=== PATIENT | male | born 1965 | race Caucasian/White ===

== ENCOUNTER 2022-07-19 23:32 | Emergency (ER) | payer BC ==
[2022-07-19] MEDS ORDERED: Pantoprazole 40 MG Vial IVPUSH SCH (23:45)
[2022-07-19] MEDS ORDERED: Pantoprazole 40 MG in Sodium Chloride 0.9% 100 ML IV SCH (23:45)
[2022-07-19] MEDS ORDERED: Sodium Chloride 0.9% 1,000 ML IV STA (23:47)
[2022-07-19] MEDS ORDERED: Pantoprazole 40 MG Vial IVPUSH ONE (23:51)
[2022-07-19 23:58] LABS: APPEARANCE,URINE CLEAR (CLEAR); BILIRUBIN,URINE NEGATIVE (NEGATIVE); COLOR,URINE YELLOW (YELLOW); GLUCOSE,URINE NEGATIVE (NEGATIVE); KETONES,URINE TRACE mg/dL (NEGATIVE); NITRITE,URINE NEGATIVE (NEGATIVE); OCCULT BLOOD,URINE TRACE-INTACT (NEGATIVE); PROTEIN,URINE NEGATIVE (NEGATIVE); UROBILINOGEN,URINE 0.2 EU/dL (0.2-1.0)
[2022-07-20 00:02] LABS: BASOPHILS ABSOLUTE AUTO 0.05 10^3/uL (0.00-0.50); BASOPHILS PERCENT AUTO 0.4 % (0-1); EOSINOPHILS ABSOLUTE AUTO 0.27 10^3/uL (0.00-1.50); HEMATOCRIT 26.3 % (42.0-52.0); IMMATURE GRAN ABSOLUTE AUTO 0.11 10^3/uL (0.00-0.49); IMMATURE GRAN PERCENT AUTO 0.8 % (0.0-4.9); LYMPHOCYTES ABSOLUTE AUTO 5.91 10^3/uL (0.60-5.00); LYMPHOCYTES PERCENT AUTO 43.6 % (24-44); MEAN CORPUSCULAR HEMOGLOBIN 32.3 pg (27.0-32.0); MEAN CORPUSCULAR HGB CONC 34.2 g/dL (32.0-36.0); MEAN CORPUSCULAR VOLUME 94.3 fL (83.0-97.0); MONOCYTES ABSOLUTE AUTO 1.21 10^3/uL (0.00-1.50); MONOCYTES PERCENT AUTO 8.9 % (0-10); NEUTROPHILS ABSOLUTE AUTO 6.01 x10^3/uL (1.80-8.00); NEUTROPHILS PERCENT AUTO 44.3 % (41-71); PLATELET COUNT,PLT 225 10^3/uL (150-400); RED BLOOD CELL COUNT 2.79 x10^6/uL (4.50-6.00); WHITE BLOOD CELL COUNT,WBC 13.6 10^3/uL (4.0-11.0)
[2022-07-20 00:13] LABS: ALANINE AMINOTRANSFERASE,ALT 28 U/L (12-78); ALBUMIN 3.4 g/dL (3.4-5.0); ALKALINE PHOSPHATASE 44 U/L (46-116); ASPARTATE AMNIOTRANSFERASE,AST 13 U/L (15-37); BILIRUBIN TOTAL 0.5 mg/dL (0.0-1.0); BLOOD UREA NITROGEN,BUN 57 mg/dL (7-18); CALCIUM 8.5 mg/dL (8.4-10.1); CARBON DIOXIDE,CO2 26 mmol/L (21-32); CHLORIDE,CL 100 mEq/L (98-106); CREATININE 0.9 mg/dL (0.7-1.3); GLUCOSE RANDOM 151 mg/dL (75-99); LIPASE 82 U/L (73-393); MAGNESIUM 1.5 mg/dL (1.8-2.4); PROTEIN TOTAL,TP 5.9 g/dL (6.4-8.2); SODIUM,NA 137 mEq/L (136-145)
[2022-07-20 00:17] LABS: ESTIMATED GFR 99 mL/min (>=60)
[2022-07-20 00:19] LABS: LEUKOCYTE ESTERASE,URINE NEGATIVE (NEGATIVE)
[2022-07-20 00:20] LABS: BACTERIA,URINE NOT SEEN /HPF (NOT SEEN); EPITHELIAL CELLS,URINE NOT SEEN /HPF (NOT SEEN); MUCUS,URINE OCCASIONAL /HPF (NOT SEEN); RBC,URINE NOT SEEN /HPF (0-5); WBC,URINE NOT SEEN /HPF (0-5)
[2022-07-20] MEDS ORDERED: Sodium Chloride 0.9% 250 ML IV SCH (01:15)
== END 2022-07-20 01:35 ==
LOC: CC.ED 23:32
DX: K92.2 Gastrointestinal hemorrhage, unspecified (principal); D62 Acute posthemorrhagic anemia; Z88.1 Allergy status to other antibiotic agents
CPT/HCPCS: 36415; 36430; 80053; 81001; 83690; 83735; 84484; 85025; 86850; 86900; 86901; 86920; 86922; 93005; 93010; 96365; 99284; 99285-25; C9113; J3490; J7030; J7050; P9016

== ENCOUNTER → 2022-08-25 | Day surgery (SDC) | payer BC ==
[~2022-08-25] MED LIST: Ketamine 200 MG/20 ML MDV ONE; Labetalol 100 MG/20 ML MDV ONE; Lidocaine 2% 20 ML MDV ONE; Midazolam 1 MG/ML 2 ML SDV ONE; Propofol 200 MG/20 ML SDV ONE; fentaNYL 50 MCG/ML SDV ONE
[2022-08-25] MEDS: Lactated Ringers 1,000 ML IV SCH (09:26)
== END ==
LOC: CC.SDS 08:59
PROVIDERS: ATTEND Family Medicine
DX: Z12.11 Encounter for screening for malignant neoplasm of colon (principal); D12.0 Benign neoplasm of cecum; K22.710 Barrett's esophagus with low grade dysplasia; K63.5 Polyp of colon; K57.30 Diverticulosis of large intestine without perforation or abscess without bleeding; N40.0 Benign prostatic hyperplasia without lower urinary tract symptoms; I10 Essential (primary) hypertension; J44.9 Chronic obstructive pulmonary disease, unspecified; F17.210 Nicotine dependence, cigarettes, uncomplicated; Z79.899 Other long term (current) drug therapy; Z87.11 Personal history of peptic ulcer disease; Z88.1 Allergy status to other antibiotic agents
CPT/HCPCS: 00813; 87081; J2250; J2704; J3010; J3490; J7120

== ENCOUNTER → 2023-09-07 | Day surgery (SDC) | payer BC ==
[~2023-09-07] MED LIST changes: -Labetalol 100 MG/20 ML MDV ONE
[2023-09-07] MEDS: Lactated Ringers 1,000 ML IV SCH (11:55)
[2023-09-07 12:55] VITALS: PULSE 104
[2023-09-07 13:30] VITALS: BP 117/84
== END ==
LOC: CC.SDS 11:31
PROVIDERS: ATTEND Family Medicine
DX: K22.70 Barrett's esophagus without dysplasia (principal); K29.50 Unspecified chronic gastritis without bleeding; K31.A0 Gastric intestinal metaplasia, unspecified; I10 Essential (primary) hypertension; J44.9 Chronic obstructive pulmonary disease, unspecified; J45.909 Unspecified asthma, uncomplicated; E66.9 Obesity, unspecified; F17.210 Nicotine dependence, cigarettes, uncomplicated; Z88.8 Allergy status to other drugs, medicaments and biological substances; Z79.899 Other long term (current) drug therapy; Z86.16 Personal history of COVID-19; Z68.37 Body mass index [BMI] 37.0-37.9, adult
CPT/HCPCS: 00731; 87081; J2250; J2704; J3010; J3490; J7120

== ENCOUNTER 2024-11-08 20:30 | Emergency (ER) | payer BC ==
[2024-11-08] MEDS: methylPREDNISolone Acetate 80 MG/ML SDV IM ONE (21:06)
[2024-11-08] MEDS: cefTRIAXone 1 GM, Lidocaine 1% 2.1 ML IM SCH (21:06)
[2024-11-08] MEDS: Take Home: Azithromycin 250 MG, 2 Tab Pack PO ONE (21:07)
== END 2024-11-08 21:20 | disposition home or self-care (01) ==
LOC: CC.ED 20:30
DX: J40 Bronchitis, not specified as acute or chronic (principal); I10 Essential (primary) hypertension; Z88.8 Allergy status to other drugs, medicaments and biological substances; Z79.899 Other long term (current) drug therapy
CPT/HCPCS: 96372; 99283; A9270-GY; J0696; J1010; J2003; J7512